=== PATIENT | female | born 1970 | race African-American/Black ===

== ENCOUNTER 2017-10-30 07:38 | Emergency (ER) | payer MEDICAID, OTHER, SELFPAY ==
[2017-10-30] MEDS ORDERED: Ibuprofen 800 MG TAB ONE (08:04)
== END 2017-10-30 08:10 | disposition home or self-care (01) ==
LOC: NAV ERS 07:38
DX: G56.93 Unspecified mononeuropathy of bilateral upper limbs (principal); I25.10 Atherosclerotic heart disease of native coronary artery without angina pectoris; F17.210 Nicotine dependence, cigarettes, uncomplicated
CPT/HCPCS: 99283

== ENCOUNTER 2018-02-06 14:51 | Emergency (ER) | payer OTHER, SELFPAY ==
[2018-02-06] MEDS ORDERED: Ondansetron ODT 4 MG TAB ONE (15:11)
[2018-02-06] MEDS ORDERED: Mag-Al Plus 1200 MG/1200 MG/120 MG/30 ML UDCUP ONE (15:16)
[2018-02-06] MEDS ORDERED: Lidocaine Viscous Sol 2% 15 ml UD Cup ONE (15:16)
[2018-02-06 16:09] LABS: Bilirubin Negative (Negative); Blood, Urine Small (Negative); Glucose, Urine (Dipstick) Negative (Negative); Leukocyte Moderate (Negative); Nitrite Negative (Negative); Protein, Urine (Dipstick) 30 mg/dL (Neg-Trace)
[2018-02-06 16:13] LABS: Clarity Hazy (Clear); RBC/HPF 0-3 HPF (0-3); Specific Gravity, Urine 1.028 (1.005-1.030)
[2018-02-06 16:14] LABS: Trichomonas/HPF 2+ HPF (None Seen)
[2018-02-06 16:24] LABS: ALT (SGPT) 23 U/L (8-55); AST (SGOT) 26 U/L (5-34); Alkaline Phosphatase 87 U/L (40-150); Anion Gap 13 mmol/L (10-20); BUN (Urea Nitrogen) 5 mg/dL (7.0-18.7); Bilirubin, Total 0.2 mg/dL (0.2-1.2); Calc. Creatinine Clearance 0 mL/min (70-130); Calcium 8.9 mg/dL (7.8-10.44); Carbon Dioxide 25 mmol/L (22-29); Chloride 104 mmol/L (98-107); Estimated GFR-MDRD Greater than 90; Globulin 3.5 g/dL (2.4-3.5); Glucose 94 mg/dL (70-105); Lipase 15 U/L (8-78); Potassium 3.6 mmol/L (3.5-5.1); Protein, Total 7.5 g/dL (6.0-8.3); Sodium 138 mmol/L (136-145)
[2018-02-06 16:33] LABS: #Basophils 0.1 thou/uL (0.0-0.2); #Eosinphils 0.1 thou/uL (0.0-0.7); #Lymphocytes 0.9 thou/uL (1.20-3.40); #Monocytes 0.7 thou/uL (0.11-0.59); #Neutrophils 3.5 thou/uL (1.40-6.50); %Basophils 1.3 % (0.0-1.0); %Eosinophils 1.9 % (0.0-10.0); %Monocytes 13.5 % (0.0-10.0); %Neutrophils 66.2 % (42.0-75.0); Differential Comment SCANNED; Hemoglobin 14.8 g/dL (12.0-16.0); Mean Corpuscular HGB CONC 32.2 g/dL (32.0-36.0); Mean Corpuscular Hemoglobin 28.7 pg (27.0-31.0); Mean Corpuscular Volume 89.1 fl (81.0-99.0); Mean Platelet Volume 10.2 fL (7.4-10.4); Platelet Count 219 thou/uL (130-400); RBC Distribution Width 11.9 % (11.5-14.5); Red Blood Cell (RBC) Count 5.17 mill/uL (4.20-5.40); White Blood Cell (WBC) Count 5.3 thou/uL (4.8-10.8)
[2018-02-07 04:13] LABS: Chlamydia by PCR Not Detected (NotDetected); GC by PCR Not Detected (NotDetected)
== END 2018-02-06 17:08 | disposition home or self-care (01) ==
LOC: NAV ERS 14:51
DX: A59.01 Trichomonal vulvovaginitis (principal); R11.2 Nausea with vomiting, unspecified; I25.10 Atherosclerotic heart disease of native coronary artery without angina pectoris; F32.9 Major depressive disorder, single episode, unspecified; G40.909 Epilepsy, unspecified, not intractable, without status epilepticus; F17.210 Nicotine dependence, cigarettes, uncomplicated; Z79.899 Other long term (current) drug therapy
CPT/HCPCS: 80053; 81003; 81015; 83690; 85025; 87491; 87591; 99284; Q0162

== ENCOUNTER 2018-06-02 22:48 | Emergency (ER) | payer OTHER | END 2018-06-02 23:15 | disposition home or self-care (01) | LOC: NAV ERS 22:48 | DX: N64.4 Mastodynia (principal); I25.10 Atherosclerotic heart disease of native coronary artery without angina pectoris; F17.210 Nicotine dependence, cigarettes, uncomplicated | CPT/HCPCS: 99283 ==

== ENCOUNTER 2019-01-15 08:35 | Emergency (ER) | payer OTHER | END 2019-01-15 09:01 | disposition home or self-care (01) | LOC: NAV ERS 08:35 | DX: R05 Cough (principal); I25.10 Atherosclerotic heart disease of native coronary artery without angina pectoris; F17.210 Nicotine dependence, cigarettes, uncomplicated | CPT/HCPCS: 99283 ==

== ENCOUNTER 2019-09-27 09:40 | Emergency (ER) | payer OTHER | END 2019-09-27 09:58 | disposition home or self-care (01) | LOC: NAV ERS 09:40 | DX: B34.9 Viral infection, unspecified (principal); I25.10 Atherosclerotic heart disease of native coronary artery without angina pectoris; F17.210 Nicotine dependence, cigarettes, uncomplicated | CPT/HCPCS: 99281 ==

== ENCOUNTER 2020-02-16 07:46 | Emergency (ER) | payer OTHER ==
[2020-02-16 08:12] LABS: Bilirubin Negative (Negative); Blood, Urine Trace (Negative); Clarity Clear (Clear); Glucose, Urine (Dipstick) >=1000 mg/dL (Negative); Leukocyte Negative (Negative); Nitrite Negative (Negative); Protein, Urine (Dipstick) Negative (Neg-Trace); Urobilinogen 0.2 mg/dL (Less than 2)
[2020-02-16 08:14] LABS: RBC/HPF 0-3 HPF (0-3); Squamous Epithelial 0-3 HPF (0-3); WBC/HPF None Seen HPF (0-3)
[2020-02-16 08:15] LABS: Pregnancy Test - Urine (BHCG) Negative (Negative); Pregu Control Background? CLEAR/WHITE (CLR/WHITE); Pregu Control Bar Appear? YES (CONTROL BAR); Specific Gravity 1.025 (1.002-1.036)
[2020-02-16 08:32] LABS: Wet Prep Clue Cells Clue Cells Absent (None Seen); Wet Prep Spermatozoa 2nd Revie Agree with result (None Seen); Wet Prep Trichomonas Trichomonas Absent (None Seen)
[2020-02-16 17:17] LABS: Chlamydia by PCR Not Detected (NotDetected); GC by PCR Not Detected (NotDetected)
== END 2020-02-16 09:10 | disposition home or self-care (01) ==
LOC: NAV ERS 07:46
DX: N89.8 Other specified noninflammatory disorders of vagina (principal); R73.03 Prediabetes; R73.9 Hyperglycemia, unspecified; I25.10 Atherosclerotic heart disease of native coronary artery without angina pectoris; Z87.891 Personal history of nicotine dependence
CPT/HCPCS: 36416; 81003; 81015; 81025; 87210; 87480; 87491; 87510; 87591; 87660; 99283

== ENCOUNTER 2020-03-25 22:24 | Emergency (ER) | payer OTHER ==
[2020-03-25] MEDS ORDERED: Sulfameth/Trimethoprim DS 800-160mg TAB ONE (22:46)
[2020-03-25] MEDS ORDERED: Acetaminophen 500 MG TAB ONE (22:46)
== END 2020-03-25 22:54 | disposition home or self-care (01) ==
LOC: NAV ERS 22:24
DX: L02.33 Carbuncle of buttock (principal); R73.03 Prediabetes; I25.10 Atherosclerotic heart disease of native coronary artery without angina pectoris; Z87.891 Personal history of nicotine dependence
CPT/HCPCS: 99282

== ENCOUNTER 2020-03-30 10:36 | Outpatient (CLI) | payer OTHER ==
--- NOTE | 2020-03-30 11:13 | RAD ---
Exam: Lumbar spine 3 views HISTORY: Pain. Symptoms x1 month Comparison none FINDINGS: 5 lumbar type vertebra. This space heights are preserved. No fractures or malalignment. Min imal osteophyte formation at L3-L4 Visualized bony pelvis is intact IMPRESSION: No significant degenerative change.
== END 2020-03-30 10:37 | disposition home or self-care (01) ==
LOC: NAV RAD 10:36
PROVIDERS: ATTEND Internal Medicine
DX: M54.5 Low back pain (principal)
CPT/HCPCS: 72100

== ENCOUNTER 2021-10-23 01:05 | Emergency (ER) | payer OTHER ==
[2021-10-23] MEDS ORDERED: Fluconazole 100 MG TAB ONE (02:21)
== END 2021-10-23 02:27 | disposition home or self-care (01) ==
LOC: NAV ERS 01:05
DX: B37.3 Candidiasis of vulva and vagina (principal); I25.10 Atherosclerotic heart disease of native coronary artery without angina pectoris; F17.210 Nicotine dependence, cigarettes, uncomplicated
CPT/HCPCS: 99283

== ENCOUNTER 2022-01-15 21:18 | Emergency (ER) | payer OTHER | END 2022-01-15 22:42 | disposition home or self-care (01) | LOC: NAV ERS 21:18 | DX: J30.9 Allergic rhinitis, unspecified (principal); R10.13 Epigastric pain; L60.0 Ingrowing nail; F17.210 Nicotine dependence, cigarettes, uncomplicated; Z79.899 Other long term (current) drug therapy | CPT/HCPCS: 99283 ==

== ENCOUNTER 2023-02-05 21:39 | Emergency (ER) | payer OTHER ==
[2023-02-05] MEDS ORDERED: Naproxen 500 MG TAB ONE (22:06)
[2023-02-05] MEDS ORDERED: Ondansetron ODT 4 MG TAB ONE (22:06)
== END 2023-02-05 22:10 | disposition home or self-care (01) ==
LOC: NAV ERS 21:39
DX: I88.9 Nonspecific lymphadenitis, unspecified (principal); I25.10 Atherosclerotic heart disease of native coronary artery without angina pectoris; R73.03 Prediabetes; F17.210 Nicotine dependence, cigarettes, uncomplicated; Z79.899 Other long term (current) drug therapy; Z79.85 Long-term (current) use of injectable non-insulin antidiabetic drugs
CPT/HCPCS: 99283; Q0162

== ENCOUNTER 2023-08-04 18:11 | Emergency (ER) | payer OTHER | END 2023-08-04 18:40 | disposition home or self-care (01) | LOC: NAV ERS 18:11 | DX: S39.012A Strain of muscle, fascia and tendon of lower back, initial encounter (principal); E11.9 Type 2 diabetes mellitus without complications; X58.XXXA Exposure to other specified factors, initial encounter | CPT/HCPCS: 99283 ==

== ENCOUNTER 2023-11-25 21:46 | Emergency (ER) | payer OTHER ==
[2023-11-25] MEDS ORDERED: Naproxen 500 MG TAB ONE (22:20)
== END 2023-11-25 22:27 | disposition home or self-care (01) ==
LOC: NAV ERS 21:46
DX: L04.0 Acute lymphadenitis of face, head and neck (principal); E11.9 Type 2 diabetes mellitus without complications
CPT/HCPCS: 99283

== ENCOUNTER 2024-02-14 10:52 | Outpatient (CLI) | payer OTHER | END 2024-02-14 10:53 | disposition home or self-care (01) | LOC: NAV RAD 10:52 | PROVIDERS: ATTEND Nurse Practitioner Family | DX: M79.605 Pain in left leg (principal) ==

== ENCOUNTER 2025-07-17 17:12 | Emergency (ER) | payer OTHER | END 2025-07-17 18:10 | disposition home or self-care (01) | LOC: NAV ERS 17:12 | DX: S43.401A Unspecified sprain of right shoulder joint, initial encounter (principal); E11.9 Type 2 diabetes mellitus without complications; I25.2 Old myocardial infarction; W07.XXXA Fall from chair, initial encounter | CPT/HCPCS: 99283 ==